=== PATIENT | male | born 1975 | race Hispanic/Latino ===

== ENCOUNTER 2017-08-16 09:12 | Emergency (ER) | payer BC ==
[~2017-08-16] VITALS: Ht 177.8 cm; Wt 122.5 kg
[2017-08-16 10:44] VITALS: BP 130/93
--- NOTE | 2017-08-16 11:00 | Diagnostic Imaging Report ---
Left foot - 3 views HISTORY: Pain. COMPARISON: None available. FINDINGS: Bones: Acute comminuted fracture of the distal diaphysis of the distal phalanx of the left first digit. The major fracture fragments are in near anatomic alignment. The fracture is involving the tuft of the left first digit. No intra-articular extension is present. No expansile lytic or sclerotic lesion. Joints: The joint spaces are well-maintained. No dislocation. Soft tissues: Soft tissue swelling of the left first digit. IMPRESSION: Comminuted fracture of the distal left first digit. Signed by: Dr. Nima Fortune M.D. on 08/16/2017 10:56 AM
== END 2017-08-16 11:10 | disposition home or self-care (01) ==
LOC: ER 09:12
PROC: 0H9RXZZ Drainage of Toe Nail, External Approach (ICD-10-PCS; principal; 2017-08-16)
DX: S90.212A Contusion of left great toe with damage to nail, initial encounter (principal); S92.425A Nondisplaced fracture of distal phalanx of left great toe, initial encounter for closed fracture; W22.8XXA Striking against or struck by other objects, initial encounter; Y99.0 Civilian activity done for income or pay
CPT/HCPCS: 99283

== ENCOUNTER → 2020-10-02 | Outpatient (CLI) | payer BC ==
[2020-10-02 09:12] LABS: BASOPHILS # (AUTO) 0.1 (0.0-0.1); BASOPHILS % 0.8 % (0.0-1.0); EOSINOPHILS # (AUTO) 0.4 (0.0-0.4); EOSINOPHILS % 3.9 % (0.0-6.0); HEMATOCRIT 46.2 % (38.2-49.6); HEMOGLOBIN 14.9 g/dL (14.0-18.0); LYMPHOCYTES # (AUTO) 3.4 (1.0-3.2); LYMPHOCYTES % 35.1 % (18.0-39.1); MEAN CORPUSCULAR HEMOGLOBIN 28.1 pg (28-32); MEAN CORPUSCULAR HGB CONC 32.3 g/dL (31-35); MONOCYTES # (AUTO) 0.6 (0.2-0.8); MONOCYTES % 6.2 % (4.4-11.3); NEUTROPHILS # (AUTO) 5.3 (2.1-6.9); NEUTROPHILS % 53.7 % (38.7-80.0); PLATELET COUNT 343 x10e3/uL (140-360); RED BLOOD COUNT 5.31 x10e6/uL (4.3-5.7); RED CELL DISTRIBUTION WIDTH 13.5 % (11.7-14.4)
[2020-10-02 09:42] LABS: ALANINE AMINOTRANSFERASE 59 IU/L (0-55); ALBUMIN 3.9 g/dL (3.5-5.0); ALBUMIN/GLOBULIN RATIO 1.1 (0.8-2.0); ALKALINE PHOSPHATASE 81 IU/L (40-150); ANION GAP 16.5 mmol/L (8-16); BLOOD UREA NITROGEN 10 mg/dL (7-26); BUN/CREATININE RATIO 11 (6-25); CALCIUM 8.4 mg/dL (8.4-10.2); CARBON DIOXIDE 25 mmol/L (22-29); CHLORIDE 105 mmol/L (98-107); CREATININE, SERUM 0.93 mg/dL (0.72-1.25); EST GLOMERULAR FILTRATION RATE > 60 ML/MIN (60-); GLUCOSE 113 mg/dL (74-118); POTASSIUM 4.5 mmol/L (3.5-5.1); SODIUM 142 mmol/L (136-145)
== END ==
LOC: US 08:03
PROVIDERS: ATTEND Surgery
DX: R10.9 Unspecified abdominal pain (principal); R11.2 Nausea with vomiting, unspecified
CPT/HCPCS: 36415; 76705; 80053; 84443; 85025

== ENCOUNTER 2022-02-18 21:55 | Inpatient (IN) | payer BC, OTHER ==
[~2022-02-18] VITALS: Ht 182.9 cm; Wt 122.5 kg
[2022-02-18] MEDS ORDERED: CEFTRIAXONE 1 GM VIAL IV STA (22:01)
[2022-02-18] MEDS ORDERED: ALBUTEROL/IPRATROPIUM 3 ML NEB NEB STA (22:01)
[2022-02-18] MEDS ORDERED: BENZONATATE 100 MG CAP PO STA (22:01)
[2022-02-18 22:14] LABS: BASOPHILS # (AUTO) 0.1 (0.0-0.1); BASOPHILS % 0.8 % (0.0-1.0); EOSINOPHILS # (AUTO) 0.2 (0.0-0.4); EOSINOPHILS % 1.6 % (0.0-6.0); HEMATOCRIT 42.6 % (38.2-49.6); HEMOGLOBIN 13.7 g/dL (14.0-18.0); LYMPHOCYTES # (AUTO) 1.9 (1.0-3.2); LYMPHOCYTES % 17.9 % (18.0-39.1); MEAN CORPUSCULAR HEMOGLOBIN 28.5 pg (28-32); MEAN CORPUSCULAR HGB CONC 32.2 g/dL (31-35); MEAN CORPUSCULAR VOLUME 88.6 fL (81-99); MONOCYTES # (AUTO) 0.7 (0.2-0.8); MONOCYTES % 6.8 % (4.4-11.3); NEUTROPHILS # (AUTO) 7.6 (2.1-6.9); NEUTROPHILS % 72.4 % (38.7-80.0); PLATELET COUNT 356 x10e3/uL (140-360); RED BLOOD COUNT 4.81 x10e6/uL (4.3-5.7)
[2022-02-18 22:22] LABS: PARTIAL THROMBOPLASTIN TIME 30.3 seconds (23.8-35.5); PROTHROMBIN TIME 14.1 seconds (11.9-14.5)
[2022-02-18 22:31] LABS: ALBUMIN 4.1 g/dL (3.5-5.0); ALBUMIN/GLOBULIN RATIO 1.3 (0.8-2.0); ANION GAP 14.9 mmol/L (8-16); CALCIUM 9.3 mg/dL (8.4-10.2); CREATININE, SERUM 1.16 mg/dL (0.72-1.25); POTASSIUM 3.9 mmol/L (3.5-5.1)
[2022-02-18] MEDS ORDERED: ACETAMINOPHEN 325 MG TAB PO ONE (22:45)
[2022-02-18] MEDS ORDERED: ACETAMINOPHEN 325 MG TAB ONE (22:51)
[2022-02-18] MEDS ORDERED: SODIUM CHLORIDE 0.9% IV SCH (23:00)
[2022-02-18] MEDS ORDERED: SODIUM CHLORIDE 0.9% 1000ML 2,000 ML ONE (23:03)
[2022-02-18] MEDS ORDERED: KETOROLAC TROMETHAMINE 30 MG/ML VIAL IV STA (23:03)
[2022-02-18] MEDS ORDERED: KETOROLAC TROMETHAMINE 30 MG/ML VIAL ONE (23:18)
[2022-02-19] VITALS (9 sets, daily range): BP systolic 103–143; BP diastolic 58–92
[2022-02-19] MEDS ORDERED: ASPIRIN 81 MG CHEW TAB PO ONE (00:15)
[2022-02-19] MEDS ORDERED: ALBUTEROL/IPRATROPIUM 3 ML NEB NEB ONE (00:15)
[2022-02-19] MEDS ORDERED: Morphine 2mg Syringe 2 MG/ML SYR IV ONE (00:15)
[2022-02-19] MEDS ORDERED: SODIUM CHLORIDE FLUSH 10 ML SYR INJ PRN (00:15)
[2022-02-19] MEDS: OSELTAMIVIR PHOSPHATE 75 MG CAP PO SCH ×3 (00:15→16:51)
[2022-02-19] MEDS ORDERED: ONDANSETRON HCL INJ 2MG/ML 2ML 2 MG/ML VIAL IV PRN (00:15)
[2022-02-19] MEDS ORDERED: Morphine 2mg Syringe 2 MG/ML SYR ONE (00:25)
[2022-02-19] MEDS ORDERED: OSELTAMIVIR PHOSPHATE 75 MG CAP PO ONE (00:26)
[2022-02-19 00:44] LABS: CREATINE KINASE MB 1.1 ng/mL (0-5.0)
[2022-02-19] MEDS: ALBUTEROL/IPRATROPIUM 3 ML NEB NEB PRN ×3 (06:28→20:50)
[2022-02-19] MEDS ORDERED: TEMAZEPAM 7.5 MG CAP PO PRN (06:30)
[2022-02-19] MEDS ORDERED: ACETAMINOPHEN 325 MG TAB PO PRN (06:30)
[2022-02-19] MEDS: SODIUM CHLORIDE 0.9% 1000ML 1,000 ML IV SCH ×2 (06:30→09:18)
[2022-02-19] MEDS ORDERED: POLYETHYLENE GLYCOL 3350 17 GM PACK PO PRN (06:30)
[2022-02-19] MEDS ORDERED: METOPROLOL TARTRATE INJ 1 MG/ML VIAL IV PRN (06:30)
[2022-02-19 08:04] LABS: CHOL/HDL RATIO 4.2 (3.9-4.7); MAGNESIUM 1.6 MG/DL (1.3-2.1); PHOSPHORUS 3.1 MG/DL (2.3-4.7)
[2022-02-19 08:26] LABS: THYROID STIMULATING HORMONE 0.262 uIU/mL (0.350-4.940)
[2022-02-19] MEDS ORDERED: MAGNESIUM SULFATE 2GM/50ML 50 ML IV ONE (08:30)
[2022-02-19 08:39] LABS: CREATINE KINASE MB 2.4 ng/mL (0-5.0)
[2022-02-19] MEDS: ASPIRIN 325 MG TAB EC PO SCH (09:16)
[2022-02-19] MEDS: FAMOTIDINE 20 MG TAB PO SCH ×2 (09:17→16:51)
[2022-02-19] MEDS: DOCUSATE SODIUM 100 MG CAP PO SCH ×2 (09:17→18:00)
[2022-02-19] MEDS: Morphine 2mg Syringe 2 MG/ML SYR IV PRN ×3 (09:37→22:40)
[2022-02-19] MEDS ORDERED: METHYLPREDNISOLONE SOD SUCC 40 MG/ML VIAL 1ML IV ONE (11:45)
[2022-02-19] MEDS ORDERED: KETOROLAC TROMETHAMINE 30 MG/ML VIAL IV ONE (11:45)
[2022-02-19] MEDS ORDERED: IOPAMIDOL 370 MG/ML 100 ML INFUS..BTL INJ ONE (13:21)
[2022-02-19 17:11] LABS: CREATINE KINASE MB 2.7 ng/mL (0-5.0)
[2022-02-19] MEDS: FLUTICASONE PROPIONATE NASAL SPRAY NS SCH (18:00)
[2022-02-19] MEDS: BENZONATATE 100 MG CAP PO PRN (18:27)
[2022-02-19] MEDS: ENOXAPARIN 30 MG/0.3 ML SYR SC SCH (21:00)
[2022-02-20] VITALS (8 sets, daily range): BP systolic 98–152; BP diastolic 67–101
[2022-02-20] MEDS: SODIUM CHLORIDE 0.9% 1000ML 1,000 ML IV SCH ×2 (01:59→06:59)
[2022-02-20] MEDS: BENZONATATE 100 MG CAP PO PRN (02:30)
[2022-02-20 05:43] LABS: BASOPHILS % 0.4 % (0.0-1.0); HEMOGLOBIN 12.3 g/dL (14.0-18.0); LYMPHOCYTES # (AUTO) 2.4 (1.0-3.2); LYMPHOCYTES % 29.1 % (18.0-39.1); MEAN CORPUSCULAR HEMOGLOBIN 28.1 pg (28-32); MEAN CORPUSCULAR HGB CONC 32.4 g/dL (31-35); MEAN CORPUSCULAR VOLUME 86.8 fL (81-99); MONOCYTES # (AUTO) 0.7 (0.2-0.8); MONOCYTES % 8.2 % (4.4-11.3); NEUTROPHILS # (AUTO) 5.1 (2.1-6.9); NEUTROPHILS % 61.8 % (38.7-80.0); PLATELET COUNT 306 x10e3/uL (140-360); RED BLOOD COUNT 4.38 x10e6/uL (4.3-5.7); RED CELL DISTRIBUTION WIDTH 14.1 % (11.7-14.4)
[2022-02-20 05:58] LABS: ANION GAP 13.4 mmol/L (8-16); CREATININE, SERUM 0.87 mg/dL (0.72-1.25); POTASSIUM 4.4 mmol/L (3.5-5.1)
[2022-02-20] MEDS ORDERED: TEMAZEPAM 15 MG CAP PO PRN (08:15)
[2022-02-20] MEDS: FAMOTIDINE 20 MG TAB PO SCH ×2 (08:42→17:57)
[2022-02-20] MEDS: DOCUSATE SODIUM 100 MG CAP PO SCH ×2 (08:42→17:57)
[2022-02-20] MEDS: OSELTAMIVIR PHOSPHATE 75 MG CAP PO SCH ×2 (08:42→17:57)
[2022-02-20] MEDS: Morphine 2mg Syringe 2 MG/ML SYR IV PRN (08:43)
[2022-02-20] MEDS: ASPIRIN 325 MG TAB EC PO SCH (08:43)
[2022-02-20] MEDS: FLUTICASONE PROPIONATE NASAL SPRAY NS SCH ×2 (08:52→17:57)
[2022-02-20] MEDS: ENOXAPARIN 30 MG/0.3 ML SYR SC SCH ×2 (08:52→21:56)
[2022-02-20] MEDS ORDERED: METHYLPREDNISOLONE SOD SUCC 40 MG/ML VIAL 1ML IV ONE (10:30)
[2022-02-20] MEDS ORDERED: ONDANSETRON HCL 4 MG ORAL DISINTEGRATING TAB PO PRN (11:00)
[2022-02-20] MEDS: HYDROCODONE/APAP 7.5MG-325MG 1 EA TAB PO PRN ×2 (12:00→18:21)
[2022-02-21] VITALS (8 sets, daily range): BP systolic 130–162; BP diastolic 85–110
[2022-02-21] MEDS: GUAIFENESIN/CODEINE 5 ML LIQD PO PRN ×2 (03:15→09:05)
[2022-02-21 04:56] LABS: BASOPHILS % 0.4 % (0.0-1.0); HEMATOCRIT 39.2 % (38.2-49.6); HEMOGLOBIN 12.7 g/dL (14.0-18.0); LYMPHOCYTES # (AUTO) 2.9 (1.0-3.2); LYMPHOCYTES % 28.1 % (18.0-39.1); MEAN CORPUSCULAR HEMOGLOBIN 28.5 pg (28-32); MEAN CORPUSCULAR HGB CONC 32.4 g/dL (31-35); MEAN CORPUSCULAR VOLUME 87.9 fL (81-99); MONOCYTES # (AUTO) 0.6 (0.2-0.8); NEUTROPHILS # (AUTO) 6.7 (2.1-6.9); NEUTROPHILS % 65.2 % (38.7-80.0); PLATELET COUNT 278 x10e3/uL (140-360); RED BLOOD COUNT 4.46 x10e6/uL (4.3-5.7); RED CELL DISTRIBUTION WIDTH 13.9 % (11.7-14.4)
[2022-02-21 05:20] LABS: ANION GAP 14.4 mmol/L (8-16); CALCIUM 8.6 mg/dL (8.4-10.2); CREATININE, SERUM 1.02 mg/dL (0.72-1.25); MAGNESIUM 2.1 MG/DL (1.3-2.1); PHOSPHORUS 3.5 MG/DL (2.3-4.7); POTASSIUM 4.4 mmol/L (3.5-5.1)
[2022-02-21] MEDS: FLUTICASONE PROPIONATE NASAL SPRAY NS SCH ×2 (09:00→17:00)
[2022-02-21] MEDS: HYDROCODONE/APAP 7.5MG-325MG 1 EA TAB PO PRN ×2 (09:05→16:08)
[2022-02-21] MEDS: ENOXAPARIN 30 MG/0.3 ML SYR SC SCH ×2 (09:06→21:40)
[2022-02-21] MEDS: ASPIRIN 325 MG TAB EC PO SCH (09:06)
[2022-02-21] MEDS: DOCUSATE SODIUM 100 MG CAP PO SCH ×2 (09:06→16:08)
[2022-02-21] MEDS: OSELTAMIVIR PHOSPHATE 75 MG CAP PO SCH ×2 (09:06→16:08)
[2022-02-21] MEDS: FAMOTIDINE 20 MG TAB PO SCH ×2 (09:06→16:08)
[2022-02-22] VITALS: BP 146/95
[2022-02-22 04:00] VITALS: BP 162/98
[2022-02-22] MEDS: HYDROCODONE/APAP 7.5MG-325MG 1 EA TAB PO PRN (04:21)
[2022-02-22 05:00] VITALS: BP 142/95
[2022-02-22 05:44] LABS: BASOPHILS # (AUTO) 0.1 (0.0-0.1); BASOPHILS % 0.6 % (0.0-1.0); EOSINOPHILS # (AUTO) 0.1 (0.0-0.4); EOSINOPHILS % 0.5 % (0.0-6.0); HEMATOCRIT 39.7 % (38.2-49.6); HEMOGLOBIN 12.8 g/dL (14.0-18.0); LYMPHOCYTES # (AUTO) 3.9 (1.0-3.2); LYMPHOCYTES % 38.3 % (18.0-39.1); MEAN CORPUSCULAR HEMOGLOBIN 27.9 pg (28-32); MEAN CORPUSCULAR HGB CONC 32.2 g/dL (31-35); MEAN CORPUSCULAR VOLUME 86.7 fL (81-99); MONOCYTES # (AUTO) 0.5 (0.2-0.8); MONOCYTES % 4.6 % (4.4-11.3); NEUTROPHILS # (AUTO) 5.7 (2.1-6.9); NEUTROPHILS % 55.8 % (38.7-80.0); PLATELET COUNT 348 x10e3/uL (140-360); RED BLOOD COUNT 4.58 x10e6/uL (4.3-5.7); RED CELL DISTRIBUTION WIDTH 13.6 % (11.7-14.4)
[2022-02-22 05:55] LABS: ANION GAP 17.5 mmol/L (8-16); CALCIUM 8.4 mg/dL (8.4-10.2); CREATININE, SERUM 0.84 mg/dL (0.72-1.25); POTASSIUM 3.5 mmol/L (3.5-5.1)
[2022-02-22 08:00] VITALS: BP 145/100
[2022-02-22 08:01] VITALS: BP 145/100
[2022-02-22] MEDS: GUAIFENESIN/CODEINE 5 ML LIQD PO PRN (08:58)
[2022-02-22] MEDS: ASPIRIN 325 MG TAB EC PO SCH (08:58)
[2022-02-22] MEDS: OSELTAMIVIR PHOSPHATE 75 MG CAP PO SCH (08:58)
[2022-02-22] MEDS: DOCUSATE SODIUM 100 MG CAP PO SCH (08:58)
[2022-02-22] MEDS: ENOXAPARIN 30 MG/0.3 ML SYR SC SCH (08:58)
[2022-02-22] MEDS: FAMOTIDINE 20 MG TAB PO SCH (08:58)
[2022-02-22] MEDS: FLUTICASONE PROPIONATE NASAL SPRAY NS SCH (09:03)
[2022-02-22 11:46] VITALS: BP 149/95
[2022-02-22] MEDS ORDERED: FAMOTIDINE20 MG PO (13:32)
[2022-02-22] MEDS ORDERED: TAMIFLU75 MG PO (13:32)
[2022-02-22] MEDS ORDERED: Fluticasone Propionate NS (13:32)
[2022-02-22] MEDS ORDERED: ASPIRIN ENTERI325 MG PO (13:32)
== END 2022-02-22 14:52 | disposition home or self-care (01) | DRG 872 ==
LOC: ER 22:03 → ERHOLD 02-19 00:11 → MED/SURG2 02-19 00:46 → OBSVTOIN 02-20 13:26
PROVIDERS: ADMIT Internal Medicine; ATTEND Internal Medicine
DX: A41.89 Other specified sepsis (principal); E87.20 Acidosis, unspecified; N17.9 Acute kidney failure, unspecified; M62.82 Rhabdomyolysis; J10.1 Influenza due to other identified influenza virus with other respiratory manifestations; R65.20 Severe sepsis without septic shock; G47.33 Obstructive sleep apnea (adult) (pediatric); E66.01 Morbid (severe) obesity due to excess calories; M17.0 Bilateral primary osteoarthritis of knee; R06.89 Other abnormalities of breathing; E83.42 Hypomagnesemia; E65 Localized adiposity; Z68.36 Body mass index [BMI] 36.0-36.9, adult; J30.9 Allergic rhinitis, unspecified; J20.8 Acute bronchitis due to other specified organisms; E86.0 Dehydration; Z20.822 Contact with and (suspected) exposure to COVID-19
CPT/HCPCS: 36415; 71045; 71260; 80048; 80053; 80061; 82550; 82553; 83036; 83605; 83735; 83880; 84100; 84443; 84484; 85025; 85379; 85610; 85730; 87040; 87400; 93005; 94640; 94660; 94799; 99284; G0378; J0456; J0696; J1650; J1885; J2270; J2405; J2920; J3475; J7030; J7050; Q9967

== ENCOUNTER 2025-01-26 19:03 | Emergency (ER) | payer BC, OTHER ==
[~2025-01-26] VITALS: Ht 175.3 cm; Wt 152.0 kg
[~2025-01-26 19:03] MED LIST: ASPIRIN ENTERI325 MG PO; FAMOTIDINE20 MG PO; Fluticasone Propionate NS; TAMIFLU75 MG PO
[2025-01-26 19:07] VITALS: TEMP 97.6
[2025-01-26] MEDS: SODIUM CHLORIDE 0.9% 1000ML 1,000 ML IV ONE (19:59)
[2025-01-26 20:06] LABS: BASOPHILS % 0.9 % (0.0-1.0); EOSINOPHILS % 1.2 % (0.0-6.0); LYMPHOCYTES % 31.9 % (18.0-39.1); MONOCYTES % 5.4 % (4.4-11.3); NEUTROPHILS % 60.2 % (38.7-80.0); RED CELL DISTRIBUTION WIDTH 13.9 % (11.7-14.4)
[2025-01-26 20:23] LABS: EST GLOMERULAR FILTRATION RATE 103.0 ML/MIN (>=60)
[2025-01-26 22:00] VITALS: PULSE 89; RESP 20
[2025-01-26] MEDS ORDERED: LISINOPRIL10 MG PO (23:19)
[2025-01-26 23:52] VITALS: BP 181/89; PULSE 96; RESP 22; TEMP 98.6; O2SAT 96
== END 2025-01-26 23:57 | disposition home or self-care (01) ==
LOC: ER 19:47
DX: I10 Essential (primary) hypertension (principal); M26.601 Right temporomandibular joint disorder, unspecified; G47.30 Sleep apnea, unspecified; E66.01 Morbid (severe) obesity due to excess calories; R94.31 Abnormal electrocardiogram [ECG] [EKG]
CPT/HCPCS: 36415; 80053; 82948; 84484; 85025; 93005; 99284; J7030